=== PATIENT | female | born 2000 | race Two or more races ===

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

== ENCOUNTER 2018-03-19 01:35 | Observation (INO) | payer MEDICAID ==
--- NOTE | 2018-03-19 01:59 | EDPHY ---
H & P Stated Complaint: ELEVATED BLOOD SUGAR, FAMILY HX OF DM Time Seen by Provider: 03/19/18 01:53 HPI/ROS: Chief Complaint: Nausea, malaise, high blood sugar HPI: 17-year-old female presenting with several days of general malaise. Has noticed weight loss over the last couple of weeks. Patient has a family history of diabetes and was told a couple years ago that she was prediabetic. Father checked her blood sugar noticed that it was in the 300 today. No fevers or chills. Some nausea and occasional vomiting. Mild generalized abdominal pain. Has had recent increased thirst and urination. ROS: 10 point Review of Systems is negative except as noted in the HPI. PMH: Denies Social History: No smoking, no alcohol, no recreational drug use Family History: non-contributory Physical Exam: Gen: Awake, Alert, uncomfortable appearing HEENT: Nose: no rhinorrhea Eyes: PERRLA, EOMI Mouth: Dry mucosa Neck: Supple, no JVD Chest: nontender, lungs clear to auscultation Heart: S1, S2 normal, no murmur Abd: Soft, non-tender, no guarding Back: no CVA tenderness, no midline tenderness Ext: no edema, non-tender Skin: no rash Neuro: CN II-XII intact, Sensation grossly intact, Strength 5/5 in bilateral upper and lower extremities - Personal History LMP (Females 10-55): Irregular Current Tetanus Diphtheria and Acellular Pertussis (TDAP): Yes - Medical/Surgical History Hx Asthma: No Hx Chronic Respiratory Disease: No Hx Diabetes: No Hx Cardiac Disease: No Hx Renal Disease: No Hx Cirrhosis: No Hx Alcoholism: No Hx HIV/AIDS: No Hx Splenectomy or Spleen Trauma: No Other PMH: denies - Social History Smoking Status: Never smoked Constitutional: Initial Vital Signs Temperature (C) 36.8 C 03/19/18 01:42 Heart Rate 119 H 03/19/18 01:42 Respiratory Rate 18 03/19/18 01:42 Blood Pressure 158/98 H 03/19/18 01:42 O2 Sat (%) 97 03/19/18 01:42 O2 Delivery Mode Room Air Allergies/Adverse Reactions: No Known Allergies Allergy (Unverified 11/10/17 20:01) Home Medications: Medication Instructions Recorded NK [No Known Home Meds] 05/18/15 Medical Decision Making ED Course/Re-evaluation: 17-year-old a family history of diabetes presenting with diabetic symptoms. Will check labs here and proceed accordingly. Laboratory evaluations consistent with DKA. Patient's potassium is 3.2. Have ordered a L of saline over an hour. I have also ordered potassium supplementation. Given her potassium level will hold off on insulin drip. I have initiated orders through the DKA protocol. This case discussed with Dr. Miller, hospitalist. She will admit to the ICU for further care. Patient's repeat I-STAT noted. Chest is up 3.3. Will initiate the patient on the insulin infusion. Continue with potassium replacement fluids. Critical Care Time: I spent a total of 40 minutes of critical care time in obtaining history, performing a physical exam, bedside monitoring of interventions, collecting and interpreting tests and discussion with consultants but not including time spent performing procedures. - Data Points Laboratory Results: Laboratory Results 03/19/18 02:10 03/19/18 02:10 03/19/18 03/19/18 03/19/18 02:18 02:10 02:10 WBC RBC Hgb POC Hgb 16.3 gm/dL gm/dL (12.6-16.3) Hct POC Hct 48 % H % (38-47) MCV MCH MCHC RDW Plt Count MPV Neut % (Auto) Lymph % (Auto) [place] % (Auto) Eos % (Auto) Baso % (Auto) Nucleat RBC Rel Count Absolute Neuts (auto) Absolute Lymphs (auto) Absolute Monos (auto) Absolute Eos (auto) Absolute Basos (auto) Absolute Nucleated RBC Immature Gran % Immature Gran # Puncture Site Patient Temperature VBG pH VBG HCO3 VBG Total CO2 VBG O2 Saturation VBG Base Excess Mixed VBG pCO2 Mixed VBG pO2 POC Sodium 136 mEq/L mEq/L (135-145) Sodium POC Potassium 3.2 mEq/L L mEq/L (3.3-5.0) Potassium POC Chloride 106 mEq/L mEq/L (97-110) Chloride Carbon Dioxide Anion Gap POC BUN 6 mg/dL L mg/dL (7-23) BUN Creatinine POC Creatinine 0.4 mg/dL L mg/dL (0.6-1.0) Estimated GFR Glucose POC Glucose 426 mg/dL H mg/dL (70-100) Calcium Phosphorus 2.9 mg/dL mg/dL (2.5-4.5) Magnesium 1.7 mg/dL mg/dL (1.6-2.3) Total Bilirubin 0.7 mg/dL mg/dL (0.1-1.4) Conjugated Bilirubin 0.6 mg/dL H mg/dL (0.0-0.5) Unconjugated Bilirubin 0.1 mg/dL mg/dL (0.0-1.1) AST 34 IU/L IU/L (14-46) ALT 69 IU/L H IU/L (9-52) Alkaline Phosphatase 111 IU/L IU/L (38-126) Total Protein 7.9 g/dL g/dL (6.3-8.2) Albumin 4.5 g/dL g/dL (3.5-5.0) Beta-Hydroxybutyrate Pending Beta HCG, Qual NEGATIVE 03/19/18 03/19/18 03/19/18 02:10 02:10 02:10 WBC 10.43 10^3/uL H 10^3/uL (3.80-9.50) RBC 5.26 10^6/uL 10^6/uL (4.18-5.33) Hgb 14.8 g/dL g/dL (12.6-16.3) POC Hgb Hct 43.8 % % (38.0-47.0) POC Hct MCV 83.3 fL fL (81.5-99.8) MCH 28.1 pg pg (27.9-34.1) MCHC 33.8 g/dL g/dL (32.4-36.7) RDW 14.6 % % (11.5-15.2) Plt Count 296 10^3/uL 10^3/uL (150-400) MPV 11.6 fL fL (8.7-11.7) Neut % (Auto) 71.7 % % (39.3-74.2) Lymph % (Auto) 21.0 % % (15.0-45.0) [place] % (Auto) 5.6 % % (4.5-13.0) Eos % (Auto) 0.4 % L % (0.6-7.6) Baso % (Auto) 0.4 % % (0.3-1.7) Nucleat RBC Rel Count 0.0 % % (0.0-0.2) Absolute Neuts (auto) 7.49 10^3/uL H 10^3/uL (1.70-6.50) Absolute Lymphs (auto) 2.19 10^3/uL 10^3/uL (1.00-3.00) Absolute Monos (auto) 0.58 10^3/uL 10^3/uL (0.30-0.80) Absolute Eos (auto) 0.04 10^3/uL 10^3/uL (0.03-0.40) Absolute Basos (auto) 0.04 10^3/uL 10^3/uL (0.02-0.10) Absolute Nucleated RBC 0.00 10^3/uL 10^3/uL (0-0.01) Immature Gran % 0.9 % % (0.0-1.1) Immature Gran # 0.09 10^3/uL 10^3/uL (0.00-0.10) Puncture Site NONE GIVEN Patient Temperature 37.0 DEGREES DEGREES VBG pH 7.20 L (7.31-7.42) VBG HCO3 9 mEQ/L L mEQ/L (22-26) VBG Total CO2 9 mEq/L L mEq/L (23-27) VBG O2 Saturation 96 % H % (65-75) VBG Base Excess -18.5 mEq/L L mEq/L (-2.5-2.5) Mixed VBG pCO2 23 mmHg L mmHg (40-44) Mixed VBG pO2 89 mmHg H mmHg (35-40) POC Sodium Sodium 139 mEq/L mEq/L (135-145) POC Potassium Potassium 3.6 mEq/L mEq/L (3.5-5.2) POC Chloride Chloride 104 mEq/L mEq/L (97-110) Carbon Dioxide 8 mEq/l L* mEq/l (22-31) Anion Gap 27 mEq/L H mEq/L (8-16) POC BUN BUN 6 mg/dL L mg/dL (7-23) Creatinine 0.6 mg/dL mg/dL (0.6-1.0) POC Creatinine Estimated GFR > 60 Glucose 427 mg/dL H mg/dL (70-100) POC Glucose Calcium 9.8 mg/dL mg/dL (8.5-10.4) Phosphorus Magnesium Total Bilirubin Conjugated Bilirubin Unconjugated Bilirubin AST ALT Alkaline Phosphatase Total Protein Albumin Beta-Hydroxybutyrate Beta HCG, Qual Medications Given: Potassium Chloride 10 meq/ (Sodium Chloride) 105 mls @ 210 mls/hr IV Q30M [facility] Stop: 03/19/18 04:14 Last Admin: 03/19/18 03:06 Dose: 105 mls Discontinued Medications Sodium Chloride (Ns) 1,000 mls @ 1,000 mls/hr IV EDNOW ONE PRN Reason: Protocol Stop: 03/19/18 03:24 Last Admin: 03/19/18 02:25 Dose: 1,000 mls Potassium Chloride (Potassium Cl 10 Meq (Premix)) 100 mls @ 200 mls/hr IV Q30M [facility] Stop: 03/19/18 04:29 Last Admin: 03/19/18 02:30 Dose: 100 mls Point of Care Test Results: 03/19/18 02:18 POC Sodium 136 POC Potassium 3.2 L POC Chloride 106 POC BUN 6 L POC Creatinine 0.4 L POC Glucose 426 H Departure - Departure Disposition: [facility] In[facility] Acute Clinical Impression: DKA (diabetic ketoacidoses) Condition: Serious
[2018-03-19 02:19] LABS: PLATELET COUNT 296 10^3/uL (150-400)
[2018-03-19] MEDS ORDERED: POTASSIUM Cl (KCl) 10 MEQ/100 ML BAG IV ONE (02:22)
[2018-03-19] MEDS ORDERED: D10W 1,000 ML IV ONE (02:25)
[2018-03-19] MEDS ORDERED: D50W 25 GM/50 ML SYR IVP PRN ×3 (02:25→17:52)
[2018-03-19] MEDS ORDERED: NS 1,000 ML IV ONE ×3 (02:25→10:00)
[2018-03-19] MEDS ORDERED: POTASSIUM Cl (KCl) 100 ML IV SCH ×2 (02:30→13:15)
[2018-03-19] MEDS ORDERED: LORazepam 0.5 MG TAB PO PRN (02:57)
[2018-03-19] MEDS ORDERED: METOCLOPRAMIDE 10 MG TAB PO PRN (02:57)
[2018-03-19] MEDS ORDERED: ONDANSETRON 4 MG/2 ML VIAL IVP PRN (02:57)
[2018-03-19] MEDS ORDERED: ACETAMINOPHEN 325 MG TAB PO PRN (02:57)
[2018-03-19] MEDS: POTASSIUM Cl (KCl) 10 MEQ in NS 100 ML IV SCH ×13 (03:06→21:55)
[2018-03-19] MEDS ORDERED: INSULIN REGULAR HUMAN 100 UNIT, COSIGN. REQUIRED 1 EA in NS 100 ML IV ONE (03:25)
--- NOTE | 2018-03-19 03:43 | GHP ---
[f rep st] HISTORY AND PHYSICAL DATE OF ADMISSION: 03/19/2018 SOURCE: The patient provides history, appears reliable. EMR was reviewed and case discussed with ED provider. CHIEF COMPLAINT: High blood sugars. HISTORY OF PRESENT ILLNESS: This is a very pleasant 17-year-old female with a past medical history of obesity, who presents to the emergency department this morning with complaints of nausea, headache, chills, malaise and weight loss over the last several weeks. Patient acutely developed some nausea today. She also reports a history of 25 pounds weight loss in the past month. She has had polyuria, polydipsia without any polyphagia. The patient was feeling unwell and so her father who is a diabetic, checked her blood sugars and noted that it was in the 370s. The patient presents to the emergency department for further evaluation. She denies any recent illnesses, no fevers, no rhinorrhea, sore throat, diarrhea, dysuria, hematuria, cough, or shortness of breath. REVIEW OF SYSTEMS: GENERAL: The patient denies any fevers, positive chills. No sweats. SKIN: No rashes or sores. ENT: Patient without nasal congestion or sore throat. EYES: Patient denies any acute changes in vision or ocular pain. CV: The patient denies any chest pain or palpitations. RESPIRATORY: The patient denies any shortness of breath, cough or increased work of breathing. GI: Nausea acutely today. No vomiting. No diarrhea. No abdominal pain. : No dysuria or hematuria. MUSCULOSKELETAL: The patient denies any joint pain or myalgias. NEURO: Patient with positive headache. No acute changes in vision. No numbness, tingling, or focal deficits. PSYCH: Patient with history of some panic attacks, remotely, but denies any anxiety or depression at this time. Remainder of review of systems negative, except as noted above. ALLERGIES: No known drug allergies. HOME MEDICATIONS: None. PAST MEDICAL HISTORY: Significant for morbid obesity, history of panic attack, possibly some history of hyperglycemia that has not been treated. PAST SURGICAL HISTORY: Patient denies. FAMILY HISTORY: Father with history of diabetes type 2. Grandmother, uncle and aunt on both sides of family with history of stomach cancer and some extended family with skin cancer. SOCIAL HISTORY: Patient lives with her parents and siblings. 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 She does not smoke, drink, or do drugs. CODE STATUS: Full. PHYSICAL EXAMINATION: VITAL SIGNS: Upon arrival to the emergency department, blood pressure is 158/98, heart rate is 119, respiratory rate 18, O2 saturation 97% on room air, temperature 36.8. GENERAL: No acute distress, pleasant young adult female who is morbidly obese, lying quietly in bed, comfortable. Mother is at bedside. HEAD: Normocephalic, atraumatic. EYES: Extraocular muscles are intact. Pupils equal, round, react to light bilaterally and symmetric. No scleral icterus or conjunctival injection. ENT: Mucous membranes appear dry. No oropharyngeal erythema or exudates. Dentition intact. NECK: Supple. Trachea midline. CV: Tachycardic with regular rhythm. No murmurs, rubs, or gallops appreciated. RESPIRATORY: Unlabored breathing. Lungs are clear to auscultation bilaterally. No wheezes, rales, or rhonchi appreciated. ABDOMEN: Obese, soft, nontender on palpation. No rebound, guarding, or masses appreciated. : No suprapubic tenderness to palpation. No Chaney catheter in place. No CVA tenderness. MUSCULOSKELETAL: Patient strength intact 5/5 strength upper and lower extremities. Sits up independently. NEURO: Grossly nonfocal. No facial drooping. Moves all extremities. PSYCH: Thought process , content and questions are all appropriate. The patient pleasant and cooperative, not agitated. LABORATORY STUDIES: WBC is 10.43, H and H is 14.8 and 43.8, MCV of 83.3, and platelet count 296. No bands. Sodium is 136, potassium 3.2, chloride 106, BUN 6, creatinine 0.4, glucose 426. Please note that all of these are point of care testing. Inpatient laboratory studies are still pending. Beta HCG is negative. VBG, pH is 7.20, bicarb 9, CO2 9, O2 saturation 96%, base excess - 18.5. ASSESSMENT/PLAN: A 17-year-old female with history of morbid obesity, possibly hyperglycemia, who presents to the emergency department with elevated blood sugars. 1. Diabetic ketoacidosis. The patient has been initiated on protocol given that she is hypokalemic. She has not been started on an insulin drip. She has received intravenous fluid supplementation. We will plan to repeat a potassium after replacement and initiate insulin drip once adequately replaced. We will plan to admit patient to the intensive care unit for close monitoring, frequent Accu-Cheks, initiation of insulin drip once the potassium has been replaced appropriately. Diabetic education, dietary consult in place. 2. Hypokalemia, in process of being replaced 40 mEq by intravenous. 3. Nausea. Is currently improved. Will add Zofran and Reglan p.r.n. for any worsening symptoms. 4. Morbid obesity (BMI > 40). 5. Fluids, electrolyte and nutrition. Potassium replacement as above. We will check a magnesium. Intravenous fluids as per protocol. The patient will be nothing per mouth, except for ice chips at this time. 6. Prophylaxis: Sequential compression devices and Lovenox. 7. Code status: Full. 8. Disposition: The patient has been admitted to observation in the intensive care unit at this time, pending further evaluation and monitoring. /[id number]/MODL MTDD
[2018-03-19] MEDS ORDERED: ENOXAPARIN 40 MG/0.4 ML SYR SC SCH (09:00)
[2018-03-19] MEDS ORDERED: PROTOCOL POTASSIUM 1 DOSE MISC PRN (09:42)
[2018-03-19] MEDS ORDERED: INSULIN REGULAR HUMAN 100 UNIT in NS 100 ML IV SCH (10:00)
[2018-03-19] MEDS ORDERED: D10W 1,000 ML IV SCH (10:00)
[2018-03-19] MEDS: NS 1,000 ML IV SCH ×2 (12:14→15:54)
--- NOTE | 2018-03-19 13:37 | HOSPPROG ---
Hospitalist Progress Note Assessment/Plan: This is a 17-year-old female new to my care today presenting with: # diabetic ketoacidosis # newly diagnosed diabetes mellitus suspect type 1 # morbid obesity Plan: -IV insulin 8 per the DKA protocol until her anion gap closes -will start subcu basal insulin once able to eat -await A1c Disposition: Will plan on keeping the patient hospitalized for another 24 hr given her new diagnosis of diabetes and to confirm that her sugars are well controlled prior to being discharged Subjective: feeling better with resolved nausea. Objective: Vital Signs Temp Pulse Resp BP Pulse Ox 36.6 C 88 16 120/55 L 99 03/19/18 11:28 03/19/18 11:28 03/19/18 11:28 03/19/18 11:28 03/19/18 11:28 Laboratory Results 03/19/18 06:00 03/18/18 03/19/18 03/20/18 05:59 05:59 05:59 Intake Total 1450 Output Total 1200 1000 Balance 250 -1000 - Physical Exam Constitutional: no apparent distress, appears nourished, not in pain Ears, Nose, Mouth, Throat: moist mucous membranes, hearing normal, ears appear normal, no oral mucosal ulcers Cardiovascular: regular rate and rhythym, no murmur, rub, or gallop Respiratory: no respiratory distress, no rales or rhonchi, clear to auscultation Gastrointestinal: normoactive bowel sounds, soft, non-tender abdomen, no palpable masses, No guarding, No rebound Genitourinary: no bladder fullness, no bladder tenderness, no renal bruits Neurologic: AAOx3, sensation intact bilaterally ICD10 Worksheet Patient Problems: Problems Problem Status Onset DKA (diabetic ketoacidoses) Acute
--- NOTE | 2018-03-19 13:44 | ASMTCMCOM ---
CM Note CM Note Notes: Pt admitted with DKA, new dx diabetes. She has a hx of panic attacks and anxiety. She is followed at [facility], is a student at and lives with her parents. Anticipate she will d/c with no CM needs when medically cleared. CM will continue to be available for any change in needs. Date Signed: 03/19/2018 01:43 PM Electronically Signed By:KRISTAL Dowling
[2018-03-19] MEDS: INSULIN GLARGINE 100 UNITS/ML UNIT SC SCH (18:08)
[2018-03-19] MEDS: INSULIN LISPRO 100 UNIT/ML SC SCH (19:35)
[2018-03-20] MEDS: POTASSIUM Cl (KCl) 10 MEQ in NS 100 ML IV SCH ×4 (05:00→09:08)
[2018-03-20] MEDS ORDERED: ENOXAPARIN 40 MG/0.4 ML SYR SC SCH (09:00)
[2018-03-20] MEDS: INSULIN LISPRO 100 UNIT/ML SC SCH ×2 (09:09→12:17)
[2018-03-20] MEDS: INSULIN GLARGINE 100 UNITS/ML UNIT SC SCH (09:11)
[2018-03-20 10:27] VITALS: BP 128/66
--- NOTE | 2018-03-20 12:09 | GDS ---
[f rep st] DISCHARGE SUMMARY DISCHARGE DIAGNOSES: 1. Diabetic ketoacidosis. 2. New diagnosis of diabetes mellitus. 3. Obesity. CONSULTANTS: None. 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 Initially she was found to have anion gap of 27 with a CO2 of 8 and serum glucose of 427. She was subsequently admitted to the intensive care unit where she was started on DKA protocol where she received volume resuscitation and insulin drip. The insuli n drip was continued until her anion gap was closed. She was then started on glargine 50 units and s liding scale insulin. On the morning of 03/20/2018, the patient was feeling much better. She is julianne erating a regular diet and her blood sugars are relatively controlled with a fasting blood sugar in t he 180s. The patient states that she feels well and would like to leave the hospital and plans to fo llow up with her primary care provider tomorrow at the [facility]. PHYSICAL EXAMINATION: VITAL SIGNS: On day of discharge, blood pressure 128/66, pulse 102, respirato ry rate 19, O2 sat 98% on room air. Temperature afebrile. GENERAL: No acute distress. HEART: S1, S2. LUNGS: Clear. ABDOMEN: Soft. EXTREMITIES: No edema. PERTINENT LABORATORIES AND STUDIES DONE THIS HOSPITAL STAY: Hemoglobin A1c was drawn, but is current ly pending. On day of discharge, sodium was 140, potassium 3.2, chloride 112, CO2 17, BUN 3, creatin ine 0.5, glucose 207. DISCHARGE MEDICATIONS: Please refer to discharge medication reconciliation in [facility] for full deta ils. Below is a preliminary list: Levemir 50 units daily, NovoLog insulin pre meal per sliding scal e, metformin 500 mg p.o. b.i.d. DISCHARGE INSTRUCTIONS: The patient will be discharged from the hospital, where she was urged to see k followup at the [facility] on Wednesday. She was given a glucometer prior to discharge, as well as instructions on how to use her insulin. She received hypoglycemia precautions. She was urged to decrease her carbohydrate intake and increase exercise. Levemir should be titrated by 2 units every 3 days until her fasting blood sugar is between 90 and 110. She should also be screened for SHERRI and anti-islet cell antibodies to see if this new-onset diabetes represents autoimmune destruction of the pancreas, and hence type 1 diabetes versus type 2 diabetes in the setting of insulin resistance. /[id number]/MODL
[2018-03-20] MEDS ORDERED: POTASSIUM Cl (KCl) 100 ML IV SCH (13:07)
[2018-03-20] MEDS ORDERED: POTASSIUM CL 10 MEQ TAB PO ONE (13:15)
== END 2018-03-20 14:07 | disposition home or self-care (01) ==
LOC: INTOOBSV 02:33 → F2N 04:48
PROVIDERS: ADMIT Family Medicine; ATTEND Family Medicine
DX: E11.10 Type 2 diabetes mellitus with ketoacidosis without coma (principal); E66.01 Morbid (severe) obesity due to excess calories; E87.6 Hypokalemia; Z68.41 Body mass index [BMI] 40.0-44.9, adult; Z83.3 Family history of diabetes mellitus
CPT/HCPCS: 96365; 99291; G0378; 82947-QW; J1650; J1815; J3480